=== PATIENT | male | born 1955 | race Caucasian/White ===

== ENCOUNTER → 2016-09-23 | Outpatient (CLI) | payer BC ==
[~2016-09-23] MED LIST: NS 100 ML IV 100 ML IV ONE
[2016-09-23 10:11] LABS: CREATININE 1.17 mg/dL (0.70-1.30)
--- NOTE | 2016-09-26 10:35 | CT ---
HISTORY: Myasthenia gravis acute exacerbation Study: CT chest with and without contrast Comparison: None Technique: Axial pre and post contrast images with coronal and sagittal reformats. Dose reduction pr ocedures were used with MA/kv adjusted for body size. Findings: Examination of the mediastinum demonstrated no evidence for mediastinal masses,. There is no evidenc e for visible thymoma, no abnormal mediastinal or hilar adenopathy is identified. No pleural effusio ns are identified. No chest wall or axillary abnormality is identified. Those portions of the upper abdominal organs visualized were within normal limits. Examination of the lung block demonstrated n o significant nodules, alveolar infiltrates, or masses. No peribronchial thickening, bronchiectasis, or areas of consolidation are identified. IMPRESSION: Lungs clear No evidence for mediastinal masses Reported By:
== END ==
LOC: RAD 09:24
PROVIDERS: ATTEND Psychiatry & Neurology Neurology
DX: G70.00 Myasthenia gravis without (acute) exacerbation (principal)
CPT/HCPCS: 36415; 71270; 82565; 84520; A4222